=== PATIENT | male | born 1960 | race Caucasian/White ===

== ENCOUNTER 2018-04-01 09:40 | Outpatient (CLI) | payer OTHER | END 2018-04-01 23:59 | disposition home or self-care (01) | LOC: CARD 09:40 | PROVIDERS: ATTEND Family Medicine | DX: G58.9 Mononeuropathy, unspecified (principal) | CPT/HCPCS: 95886; 95908 ==

== ENCOUNTER → 2020-01-12 | Outpatient (CLI) | payer OTHER | END | disposition home or self-care (01) | LOC: RAD 12:03 | PROVIDERS: ATTEND Family Medicine | DX: M62.81 Muscle weakness (generalized) (principal) | CPT/HCPCS: 70551 ==